=== PATIENT | female | born 1955 | race Caucasian/White ===

== ENCOUNTER 2018-12-04 17:04 | Emergency (ER) | payer OTHER ==
[~2018-12-04] VITALS: Ht 167.6 cm; Wt 68.5 kg
[2018-12-04 17:13] VITALS: Ht 167.6 cm; Wt 68.5 kg
--- NOTE | 2018-12-04 17:30 | ERD ---
ER Documentation Chief Complaint Chief Complaint Patient SOCO with complaint of headache HPI The patient is a 63-year-old female, presenting to the ER because of frontal headache intermittently for 1 day, denies similar symptoms previously, denies blurred vision, facial pain, neck pain, chest pain, dyspnea, abdominal pain, vomiting, dysuria. She does not smoke nor drink, denies any unusual stress Past medical history: Hypertension Past surgical history: None ROS All systems reviewed and are negative except as per history of present illness. Medications Home Meds Active Scripts Ibuprofen* (Motrin*) 600 Mg Tab, 600 MG PO Q6H PRN for PAIN AND OR ELEVATED TEMP, #20 TAB Prov:KEATON DAVIS MD 12/04/18 Azithromycin* (Zithromax*) 250 Mg Tablet, 250 MG PO .ZPACK DIRECTED, #6 TAB TAKE 500 MG (2 TABS) THE FIRST DAY THEN 250 MG (1 TAB) DAYS 2-5 Prov:KEATON DAVIS MD 12/04/18 Physical Exam Vitals Vital Signs Date Temp Pulse Resp B/P (MAP) Pulse Ox O2 O2 Flow FiO2 Time Delivery Rate 12/04/18 78 18 145/78 99 Room Air 18:16 (100) 12/04/18 81 18 191/80 99 Room Air 17:43 (117) 12/04/18 36.6 17:39 12/04/18 97.8 89 20 183/84 96 17:13 (117) Physical Exam Const: No acute distress. Head: Atraumatic. Eyes: Normal Conjunctiva. ENT: Normal External Ears, Nose and Mouth. Bilateral frontal sinus tenderness Neck: Full range of motion. No meningismus. Resp: Clear to auscultation bilaterally. Cardio: Regular rate and rhythm. Abd: Soft, non distended, normal bowel sounds, non tender. Skin: No petechiae or rashes. Back: No midline or flank tenderness. Ext: No cyanosis, or edema. Neur: Awake and alert. No focal deficit Psych: Normal Mood and Affect. Results 24 hrs Current Medications Medications Dose Sig/Cate Start Time Status Last (Trade) Ordered Route PRN Stop Time Admin Dose Reason Admin Clonidine 0.1 mg ONCE ONCE 12/04/18 DC 12/04/18 (Catapres) PO 18:00 12/04/18 17:39 18:01 650 mg ONCE ONCE 12/04/18 DC 12/04/18 Acetaminophen PO 18:00 12/04/18 17:39 (Tylenol 18:01 Tab) Procedures/MDM [place] [address] Radiology Main Line: [phone] DIAGNOSTIC IMAGING REPORT Patient: CEE HAMMONDS : 1955 Age: 63 Sex: F MR #: [id number] DOS: 12/04/18 1737 Ordering MD: KEATON DAVIS MD Location: E/R Room/Bed: PROCEDURE: CT Head without contrast. CLINICAL INDICATION: Headaches TECHNIQUE: The study was performed utilizing a GE 64-slice multidetector CT scanner. Direct spiral axial CT images of the brain were obtained from the vertex to the skull base without contrast. Coronal and sagittal reformat images are provided. The CTDI vol is 39.62 mGy and the DLP is 634.23 mGy-cm. The images were reviewed on a PACS workstation. DICOM images are available. One or more of the following dose reduction techniques were used: Automated exposure control. Adjustment of the mA and/or kV according to patient size. Use of iterative reconstruction technique. COMPARISON: No prior studies are available for comparison. FINDINGS: The ventricles and cortical sulci are within normal limits for the patient's age. The merhcant-white matter differentiation is maintained. No intra or extra- axial fluid collection or mass effect or shift in the midline structures is seen. The mastoid air cells are under pneumatized. Small air-fluid levels in the bilateral sphenoid sinuses are seen. The remaining visualized paranasal sinuses, orbits, and calvarium are unremarkable. IMPRESSION: 1. No acute intracranial pathology. 2. Small air-fluid levels in the bilateral sphenoid sinuses which may represent acute sinusitis in the correct clinical setting. RPTAT: HPNM Physician Vera Date Time Electronically viewed and signed by Physician Vera on 12/04/2018 18:13 / CC: KEATON DAVIS MD [id number] EKG: Read by emergency physician Rate/Rhythm: Normal Sinus Rhythm 98 beats/min QRS, ST, T-waves: No ST elevation, no T inversion, inferior Q's Impression: Abnormal EKG MEDICAL MAKING DECISION: The patient is a 63-year-old female, presenting with acute accelerated hypertension, acute sinus headache, acute sinusitis. She was treated with Tylenol 650 mg p.o. for her headache and clonidine 0.1 mg p.o. for her acute accelerated hypertension with good response. She is stable for outpatient follow-up The differential diagnoses considered include but are not limited to subarachnoid hemorrhage, occult trauma, CVA, meningitis, encephalitis, hypertension, tension, migraine, cluster, narcotic withdrawal, cervical spine disease. Departure Diagnosis: Primary Impression: Accelerated hypertension Additional Impressions: Sinusitis Sinus headache Condition: Good Comments She was discharged with Zithromax and Motrin I discussed the findings with the patient. I advised the patient to follow-up with the primary physician in about 2-3 days, sooner if needed and return if any concern. Disclaimer: Inadvertent spelling and grammatical errors are likely due to EHR/dictation software use and do not reflect on the overall quality of patient care. Also, please note that the electronic time recorded on this note does not necessarily reflect the actual time of the patient encounter. KEATON DAVIS MD Dec 04, 2018 17:30
[2018-12-04] MEDS ORDERED: ACETAMINOPHEN 325 MG TAB PO ONE (18:00)
[2018-12-04] MEDS ORDERED: AZIT250T PO (18:43)
[2018-12-04] MEDS ORDERED: IBUP-1542 PO (18:43)
[2018-12-04 18:50] VITALS: BP 128/80; PULSE 76; RESP 18
== END 2018-12-04 18:50 | disposition home or self-care (01) ==
LOC: E/R 17:04
DX: I10 Essential (primary) hypertension (principal); J32.9 Chronic sinusitis, unspecified
CPT/HCPCS: 70450; Z7502; Z7610

== ENCOUNTER 2019-05-02 20:24 | Emergency (ER) | payer OTHER ==
[~2019-05-02] VITALS: Ht 152.4 cm; Wt 69.6 kg
[~2019-05-02 20:24] MED LIST: AZIT250T PO; IBUP-1542 PO; IBUP800T48 PO; OMEP40CA6 PO; TRAM50TA2 PO
[2019-05-02 20:37] VITALS: Ht 152.4 cm; Wt 69.6 kg
--- NOTE | 2019-05-02 22:14 | ERD ---
ER Documentation Chief Complaint Chief Complaint pain right shoulder x 1 day. denies trauma HPI This is a 63-year-old female who presents here in the emergency department with complaints of bilateral shoulder/bilateral elbow pain for about a day. Stated that she has history of rheumatoid arthritis and that she ran out of her medication. Patient stated that she forgot the name of her medication. LMP: Unknown. Denies headache, head injury, loss of consciousness, dizziness, neck pain, neck stiffness, throat pain, difficulty swallowing, difficulty breathing lying flat, shoulder pain, chest pain, back pain, abdominal pain, nausea, vomiting, constipation, diarrhea, urinary symptoms, or possibility being , loss of bowel and bladder control, trauma, injury, falls, difficulty walking due to pain, numbness or tingling sensation, calf pain, recent travel, recent major surgery in the last 3 weeks, calf pain, recent long travel, recent exposure to any illness, recent antibiotic use in the last 3 months, fever, chills, seizures. Past medical history: Hypertension. Rheumatoid arthritis. Surgical history: Denies. Social: Denies smoking, use of alcoholic beverages, use of illegal drugs. ROS All systems reviewed and are negative except as per history of present illness. Medications Home Meds Active Scripts Tramadol HCl (Tramadol HCl) 50 Mg Tablet, 50 MG PO Q4 PRN for severe pain, #5 TAB Prov:TASHIAMAGOFRANTZTIERA Adkins 05/02/19 Omeprazole* (Omeprazole*) 40 Mg Capsule.dr, 40 MG PO DAILY, #30 CAP Prov:LAKIAJOBNIC 05/02/19 Ibuprofen* (Motrin*) 800 Mg Tab, 800 MG PO Q8 PRN for PAIN AND OR ELEVATED TEMP, #30 TAB Prov:NIC GERARD 05/02/19 Ibuprofen* (Motrin*) 600 Mg Tab, 600 MG PO Q6H PRN for PAIN AND OR ELEVATED TEMP, #20 TAB Prov:KEATON DAVIS MD 12/04/18 Azithromycin* (Zithromax*) 250 Mg Tablet, 250 MG PO .ZPACK DIRECTED, #6 TAB TAKE 500 MG (2 TABS) THE FIRST DAY THEN 250 MG (1 TAB) DAYS 2-5 Prov:KEATON DAVIS MD 12/04/18 Allergies Allergies: Coded Allergies: No Known Drug Allergies (Verified Allergy, Unknown, 05/02/19) PMhx/Soc Hx Cardiac Disorders: Yes (htn, HLD) Hx Miscellaneous Medical Probl: Yes (RA, HYPOTHYROIDISM ) Hx Alcohol Use: No Hx Substance Use: No Hx Tobacco Use: No Smoking Status: Never smoker Physical Exam Vitals Physical Exam Const: No acute distress Head: Atraumatic Eyes: Normal Conjunctiva ENT: Normal External Ears, Nose and Mouth. Neck: Full range of motion. No meningismus. Resp: Clear to auscultation bilaterally Cardio: Regular rate and rhythm, no murmurs Abd: Soft, non tender, non distended. Normal bowel sounds Skin: No petechiae or rashes Back: No midline or flank tenderness Ext: No cyanosis, or edema. Bilateral shoulder: No obvious deformity. No swelling. No discoloration. Skin is not warm to touch. Has good and full range of motion. Bilateral elbows: No deformities. No swelling. No discoloration. Good and full range of motion. Skin is not warm to touch. No redness and skin. Bilateral hands is good and full function. No neurovascular deficit. Neur: Awake and alert. No neurological deficits. Psych: Normal Mood and Affect Results 24 hrs Current Medications Medications Dose Sig/Cate Start Time Status Last (Trade) Ordered Route PRN Stop Time Admin Dose Reason Admin Morphine 4 mg ONCE STAT 05/02/19 DC 05/02/19 Sulfate IM 22:16 22:30 (morphine) 05/02/19 22:18 10 mg ONCE ONCE 05/02/19 DC 05/02/19 Dexamethasone IM 22:30 22:29 (Decadron) 05/02/19 22:31 Ondansetron 4 mg ONCE STAT 05/02/19 DC 05/02/19 HCl (Zofran ODT 22:16 22:29 Odt) 05/02/19 22:18 Famotidine 40 mg ONCE ONCE 05/02/19 DC 05/02/19 (Pepcid) PO 22:30 22:30 05/02/19 22:31 Procedures/MDM Diagnostic tests: Clinical exam. Patient is strongly refusing diagnostic tests. Treatment: Morphine IM. Dexamethasone IM. Zofran p.o. Pepcid p.o. Re-evaluation: Denies neck pain, shoulder pain, elbow pain, chest pain/chest pressure, back pain. No neurovascular deficit. No neurological deficits. Stated that she feels much better at this time and that she is ready to go home. Stated that she is comfortable to go home. Differential diagnosis I have low suspicion for acute myocardial infarction, septic joint, fracture, compartment syndrome, DVT. Final diagnosis: Rheumatoid arthritis. Prescription: Motrin. Omeprazole. Tramadol for severe pain. Follow-up with PCP in the next 24-48 hours. Follow-up with supervisor [employer] in the next 24 to 48 hours. Come back here in the emergency department for any new symptoms or any worsening symptoms. All questions and concerns were answered. Patient and family members verbalized understanding and agreed with plan of care. Hemodynamically stable on discharge. Departure Diagnosis: Primary Impression: Rheumatoid aortitis Condition: Stable Additional Instructions: Follow-up with PCP in the next 24-48 hours. Follow-up with supervisor [employer] in the next 24 to 48 hours. Come back here in the emergency department for any new symptoms or any worsening symptoms. NIC GERARD May 02, 2019 22:14
[2019-05-02] MEDS ORDERED: ONDANSETRON (ODT) 4 MG TAB ODT STA (22:16)
[2019-05-02] MEDS ORDERED: morphine 4 MG/ML VIAL IM STA (22:16)
[2019-05-02] MEDS ORDERED: DEXAMETHASONE 10 MG/ML 1 ML INJ IM ONE (22:30)
[2019-05-02] MEDS ORDERED: FAMOTIDINE 20 MG TAB PO ONE (22:30)
[2019-05-02 23:04] VITALS: BP 141/81; PULSE 69; RESP 18
== END 2019-05-02 23:05 | disposition home or self-care (01) ==
LOC: FTE 20:24
DX: I01.1 Acute rheumatic endocarditis (principal); E03.9 Hypothyroidism, unspecified; I10 Essential (primary) hypertension
CPT/HCPCS: 96372; J1100; J2270; Z7502; Z7610